=== PATIENT | female | born 1955 | race Two or more races ===

== ENCOUNTER 2017-02-21 13:02 | Day surgery (SDC) | payer OTHER ==
[~2017-02-21] VITALS: Ht 149.9 cm; Wt 57.3 kg
[~2017-02-21 13:02] MED LIST: ESTR0.45 PO; LOSA50TA6 PO; MELO15TA24 PO; METO50TA82 PO; OMEP40CA6 PO; TRAM50TA2 PO; TRIA1TAB3 PO
[2017-02-21] MEDS ORDERED: LACTATED RINGERS 1,000 ML IV SCH (13:33)
[2017-02-21 13:42] VITALS: BP 165/89
[2017-02-21] MEDS ORDERED: FENTANYL PF 100 MCG/2ML IV PRN (14:00)
[2017-02-21] MEDS ORDERED: METOPROLOL 1 MG/ML, 5ML IV PRN (14:00)
[2017-02-21] MEDS ORDERED: ALBUTEROL SULFATE 2.5 MG/3 ML NPPB PRN (14:00)
[2017-02-21] MEDS ORDERED: OXYcodone 5 MG/5 ML ORAL.SOL UDC PO PRN (14:00)
[2017-02-21] MEDS ORDERED: HYDROcodone/APAP 7.5-325MG/15ML UDC PO PRN (14:00)
[2017-02-21] MEDS ORDERED: MEPERIDINE/PF 25MG/0.5ML IVPush PRN (14:00)
[2017-02-21] MEDS ORDERED: PROMETHAZINE 25 MG/ML, 1ML IV PRN (14:00)
[2017-02-21] MEDS ORDERED: LABETALOL 5MG/ML, 20ML IV PRN (14:00)
[2017-02-21] MEDS ORDERED: hydrALAzine 20 MG/ML, 1ML IV PRN (14:00)
[2017-02-21] MEDS ORDERED: ONDANSETRON 2MG/ML, 2ML IVPush PRN (14:00)
[2017-02-21] MEDS ORDERED: HYDROmorphone 1 MG/ML, 1ML IV PRN (14:00)
[2017-02-21] MEDS ORDERED: ACETAMINOPHEN 325 MG TABLET PO PRN (14:00)
[2017-02-21] MEDS ORDERED: METOCLOPRAMIDE 5 MG/ML, 2ML IV PRN (14:00)
[2017-02-21] MEDS ORDERED: EPHEDRINE 50 MG/ML, 1ML IVPush PRN (14:00)
[2017-02-21] MEDS ORDERED: MIDAZOLAM 1 MG/ML, 2ML IV PRN (14:00)
[2017-02-21] MEDS ORDERED: MIDAZOLAM 1 MG/ML, 2ML ONE (14:11)
[2017-02-21] MEDS ORDERED: FENTANYL PF 100 MCG/2ML ONE (14:11)
[2017-02-21] MEDS ORDERED: ROCURONIUM 10 MG/ML ONE (14:29)
[2017-02-21] MEDS ORDERED: DEXAMETHASONE 4 MG/ML, 1ML ONE (14:29)
[2017-02-21] MEDS ORDERED: PROPOFOL 10 MG/ML, 20ML ONE (14:29)
[2017-02-21] MEDS ORDERED: SUCCINYLCHOLINE 20 MG/ML, 10ML ONE (14:29)
[2017-02-21] MEDS ORDERED: ONDANSETRON 2MG/ML, 2ML ONE (14:29)
[2017-02-21] MEDS ORDERED: CEFAZOLIN 1,000 MG ONE (14:29)
[2017-02-21] MEDS ORDERED: OMNIPAQUE 350 MG/ML, 50 ML BOTTLE ONE (15:21)
[2017-02-21] MEDS ORDERED: INDOMETHACIN 50 MG SUPP.RECT ONE (15:29)
[2017-02-21] MEDS ORDERED: INDOMETHACIN 50 MG SUPP.RECT PR ONE (15:30)
[2017-02-21] MEDS ORDERED: hydrALAzine 20 MG/ML, 1ML ONE (15:52)
[2017-02-21] MEDS ORDERED: OXYcodone/APAP 5/325MG TABLET ONE (16:36)
[2017-02-21] MEDS ORDERED: OXYcodone/APAP 5/325MG TABLET PO PRN (17:00)
[2017-02-21] MEDS ORDERED: OXYcodone/APAP 5/325MG TABLET PO ONE (17:00)
== END 2017-02-21 18:30 | disposition home or self-care (01) ==
LOC: OUT 13:02
PROVIDERS: ATTEND Internal Medicine Gastroenterology
DX: K80.50 Calculus of bile duct without cholangitis or cholecystitis without obstruction (principal); K83.8 Other specified diseases of biliary tract; K29.70 Gastritis, unspecified, without bleeding; M19.90 Unspecified osteoarthritis, unspecified site; K21.9 Gastro-esophageal reflux disease without esophagitis; I10 Essential (primary) hypertension; Z90.710 Acquired absence of both cervix and uterus; Z90.49 Acquired absence of other specified parts of digestive tract; Z98.890 Other specified postprocedural states
CPT/HCPCS: 43239; 43259; 43262; 43264; 74330; 88305; 93005; C1769; J0330; J0360; J0690; J1100; J2250; J2405; J2704; J3010; J7120; Q9967; 74328

== ENCOUNTER 2018-04-18 12:25 | Emergency (ER) | payer MEDICARE, OTHER ==
[~2018-04-18] VITALS: Ht 149.9 cm; Wt 54.6 kg
[~2018-04-18 12:25] MED LIST changes: -LOSA50TA6 PO; +LOSA50TA7 PO
[2018-04-18] MEDS ORDERED: ATOR10TA9 PO (12:57)
[2018-04-18] MEDS ORDERED: AMLO2.5T3 PO (12:57)
[2018-04-18] MEDS ORDERED: NABU750T PO (12:57)
[2018-04-18] MEDS ORDERED: MECLIZINE CHEWABLE 25 MG TAB ONE (13:13)
[2018-04-18] MEDS ORDERED: ONDANSETRON ODT 4 MG ONE (13:13)
[2018-04-18 13:28] LABS: BASOPHILS # (AUTO) 0.04 x10^3/uL (0-0.1); BASOPHILS % (AUTO) 1 % (0-1); EOSINOPHILS # (AUTO) 0.04 x10^3/uL (0-0.4); EOSINOPHILS % (AUTO) 1 % (1-7); LYMPHOCYTES % (AUTO) 19 % (22-44); MD NO; MEAN CORPUSCULAR HEMOGLOBIN 30.8 pg (27.0-34.8); MEAN CORPUSCULAR HGB CONC 33.7 g/dL (32.4-35.8); MEAN CORPUSCULAR VOLUME 91.6 fL (80-100); MEAN PLATELET VOLUME 8.3 fL (7.4-10.4); MONOCYTES # (AUTO) 0.53 x10^3/uL (0.2-0.8); MONOCYTES % (AUTO) 7 % (2-9); NEUTROPHILS # (AUTO) 5.67 x10^3/uL (1.8-6.8); NEUTROPHILS % (AUTO) 73 % (42-75); PLATELET COUNT 322 x10^3/uL (130-400); RED BLOOD COUNT 5.22 x10^6/uL (3.82-5.3); RED CELL DISTRIBUTION WIDTH 13.4 % (9.6-15.2)
[2018-04-18] MEDS ORDERED: MECLIZINE CHEWABLE 25 MG TAB PO ONE (13:30)
[2018-04-18] MEDS ORDERED: ONDANSETRON ODT 4 MG PO ONE (13:30)
[2018-04-18 13:44] LABS: ANION GAP 9 mmol/L (5-15); CALCIUM 9.9 mg/dL (8.5-10.1); CHLORIDE 109 mmol/L (98-107); CREATININE 0.73 mg/dL (0.55-1.02)
[2018-04-18 13:57] LABS: TROPONIN I < 0.015 ng/mL (0.000-0.045)
[2018-04-18 14:04] LABS: MICROSCOPIC NOT IND
[2018-04-18 14:08] LABS: CULTURE INDICATED? NO
[2018-04-18 15:14] VITALS: BP 148/63
== END 2018-04-18 15:16 | disposition home or self-care (01) ==
LOC: ED 14:09
DX: H81.393 Other peripheral vertigo, bilateral (principal); H81.13 Benign paroxysmal vertigo, bilateral; I10 Essential (primary) hypertension
CPT/HCPCS: 36415; 80048; 81003; 82040; 84484; 85025; 93005; 99285; Q0162